=== PATIENT | female | born 1990 | race Caucasian/White ===

== ENCOUNTER 2024-05-17 16:45 | Emergency (ER) | payer MEDICAID ==
[2024-05-17] MEDS: Ketorolac 60 MG/2 ML SDV IM ONE (19:21)
== END 2024-05-17 19:41 | disposition home or self-care (01) ==
LOC: JD.ED 16:45
DX: M54.50 Low back pain, unspecified (principal); L98.491 Non-pressure chronic ulcer of skin of other sites limited to breakdown of skin; B37.2 Candidiasis of skin and nail; Z79.899 Other long term (current) drug therapy; Z91.013 Allergy to seafood; Z91.041 Radiographic dye allergy status; Z91.048 Other nonmedicinal substance allergy status; Z91.018 Allergy to other foods
CPT/HCPCS: 96372; 99283; J1885